=== PATIENT | female | born 2005 | race Two or more races ===

== ENCOUNTER 2024-04-20 17:01 | Emergency (ER) | payer OTHER ==
[~2024-04-20] VITALS: Ht 162.6 cm; Wt 49.9 kg
[2024-04-20 19:14] LABS: BASOPHILS # (AUTO) 0.1 K/UL (0.0-0.2); BASOPHILS % (AUTO) 0.8 % (0.0-2.0); EOSINOPHILS % (AUTO) 10.6 % (0.0-7.0); HEMATOCRIT 38.1 % (31.2-41.9); HEMOGLOBIN 12.7 g/dL (10.9-14.3); LYMPHOCYTES # (AUTO) 1.9 K/uL (0.8-4.8); LYMPHOCYTES % (AUTO) 19.2 % (20.5-74.5); MEAN CORPUSCULAR HEMOGLOBIN 28.6 uug (24.7-32.8); MEAN CORPUSCULAR HGB CONC 33 g/dL (32.3-35.6); MEAN CORPUSCULAR VOLUME 85.5 fL (75.5-95.3); MONOCYTES # (AUTO) 0.8 K/uL (0.1-1.30); MONOCYTES % (AUTO) 8.2 % (0-11); NEUTROPHILS # (AUTO) 5.9 K/uL (1.8-8.9); NEUTROPHILS % (AUTO) 61.2 % (31.5-64.5); PLATELET COUNT (AUTO) 306 K/uL (179-408); RED BLOOD CELL COUNT(AUTO) 4.45 MIL/uL (3.63-4.92); RED CELL DISTRIBUTION WIDTH 13.3 % (12.3-17.7); WHITE BLOOD COUNT (AUTO) 9.7 K/uL (3.8-11.8)
[2024-04-20 19:21] LABS: DIFFERENTIAL COMMENT 1
[2024-04-20 19:24] LABS: CALCIUM 9.4 mg/dL (8.5-10.1); CREATININE 0.7 mg/dL (0.6-1.3); POTASSIUM 4.1 mmol/L (3.5-5.1)
[2024-04-20 19:36] LABS: ALBUMIN 3.9 g/dL (3.4-5.0); BILIRUBIN,TOTAL 0.2 mg/dL (0.2-1.0); TOTAL PROTEIN, SERUM 7.5 g/dL (6.4-8.2)
[2024-04-20 20:12] LABS: *BILIRUBIN,URIN NEGATIVE (NEGATIVE); *CLARITY,URINE CLEAR (CLEAR); *COLOR,URINE YELLOW (YELLOW); *KETONES,URINE TRACE (NEGATIVE); *PROTEIN,URINE NEGATIVE (NEGATIVE); *UROBILINOGEN,URINE 0.2 E.U./dl (NORMAL); LEUKOCYTE ESTERASE ,URINE NEGATIVE (NEGATIVE); NITRITE, URINE NEGATIVE (NEGATIVE); PH,URINE 6.5 (5.0-8.0); UGLUCOSE NEGATIVE (NEGATIVE)
[2024-04-20 20:13] LABS: *BLOOD, URINE TRACE (NEGATIVE); *URINE HCG, QUAL NEGATIVE (NEGATIVE)
[2024-04-20 20:19] LABS: BACTERIA,URINE FEW /HPF (NONE SEEN); RBC,URINE 0-3 /HPF (0-3); SQUAMOUS EPITHELIAL CELL,UR MODERATE /HPF (NONE SEEN); WBC,URINE 0-3 /HPF (0-3)
[2024-04-20] MEDS ORDERED: NAPR-1009 PO (20:26)
[2024-04-20] MEDS ORDERED: AZIT250T PO (20:29)
[2024-04-20] MEDS: KETOROLAC TROMETHAMINE 30 MG INJ IM ONE (20:45)
[2024-04-20] MEDS ORDERED: KETOROLAC TROMETHAMINE 30 MG INJ ONE (20:47)
[2024-04-20] MEDS ORDERED: NAPR500T6 PO (22:10)
[2024-04-20 22:55] VITALS: BP 119/70; TEMP 97.9; O2SAT 98
== END 2024-04-20 20:55 | disposition home or self-care (01) ==
LOC: ER 17:01
DX: J06.9 Acute upper respiratory infection, unspecified (principal); R09.1 Pleurisy; R10.2 Pelvic and perineal pain; Z79.899 Other long term (current) drug therapy
CPT/HCPCS: 99285; 71045; 80053; 81001; 84703; 83880; 85025; 85379; 87040; 84484; 36415; 93005; 96372; 83605; J1885; A4606; A4663

== ENCOUNTER 2024-11-28 21:39 | Emergency (ER) | payer OTHER ==
[~2024-11-28] VITALS: Ht 162.6 cm; Wt 61.2 kg
[~2024-11-28 21:39] MED LIST: AZIT250T PO; NAPR-1009 PO; NAPR500T6 PO
[2024-11-28] MEDS: CLINDAMYCIN HCL 150 MG CAPSULE PO ONE (22:44)
[2024-11-28] MEDS ORDERED: CLINDAMYCIN HCL 150 MG CAPSULE ONE (22:44)
[2024-11-28] MEDS ORDERED: CLIN-118 PO (22:46)
[2024-11-28 22:51] VITALS: BP 116/69; TEMP 98; O2SAT 98
== END 2024-11-28 22:55 | disposition home or self-care (01) ==
LOC: ER 22:45
DX: L60.0 Ingrowing nail (principal)
CPT/HCPCS: A4606; A4663